=== PATIENT | male | born 1965 | race Caucasian/White ===

== ENCOUNTER 2021-09-22 13:27 | Day surgery (SDC) | payer OTHER ==
[~2021-09-22 13:27] MED LIST: Lactated Ringers 1,000 ML IV SCH; Lidocaine 1%/Sod Bicarbonate in NS 8.4% 1 ML Syringe IDERM PRN; Sodium Chloride 0.9% 10 ML Syringe FLUSH PRN; Sodium Chloride 0.9% 10 ML Syringe FLUSH SCH
[2021-09-22] MEDS ORDERED: Midazolam 1 MG/ML 2 ML SDV ONE ×2 (14:53→15:07)
[2021-09-22] MEDS ORDERED: Propofol 200 MG/20 ML SDV ONE ×2 (15:06→15:34)
== END 2021-09-22 16:27 | disposition home or self-care (01) ==
LOC: JD.SDS 13:27
PROVIDERS: ATTEND Surgery
DX: Z12.11 Encounter for screening for malignant neoplasm of colon (principal); D12.2 Benign neoplasm of ascending colon; D12.4 Benign neoplasm of descending colon; F17.220 Nicotine dependence, chewing tobacco, uncomplicated; K21.9 Gastro-esophageal reflux disease without esophagitis; F17.210 Nicotine dependence, cigarettes, uncomplicated; Z80.0 Family history of malignant neoplasm of digestive organs; Z88.0 Allergy status to penicillin; Z91.018 Allergy to other foods; Z79.899 Other long term (current) drug therapy
CPT/HCPCS: 00812; 45380; 45385; 88305; J2250; J2704; J7120